=== PATIENT | female | born 1980 | race Asian ===

== ENCOUNTER 2017-11-29 12:20 | Outpatient (CLI) | payer OTHER, SELFPAY ==
--- NOTE | 2017-12-04 11:55 | PM.OBTRLD ---
[facility] Medical History Eczema (Chronic ~1989) History of frequent headaches (Resolved ~1979) Migraine (Resolved ~1979) Surgical History Status post appendectomy (Resolved 1982) Family History Father Age: 63 Prostate cancer Hypertension Sister Age: 34 Hypertension Evaluation Evaluation Baseline heart rate: 125 Variability: Moderate (11-25) monitor accelerations: Present monitor decelerations: Absent Uterine Contraction Intensity: Mild Category of Tracing: I
== END 2017-11-29 13:10 | disposition home or self-care (01) ==
LOC: LABOR 12:55 → OB 12-04 14:19
PROVIDERS: Family Provider Obstetrics & Gynecology; PCP Obstetrics & Gynecology; Visit Provider Obstetrics & Gynecology
DX: Z34.03 Encounter for supervision of normal first pregnancy, third trimester (principal); Z3A.33 33 weeks gestation of pregnancy
CPT/HCPCS: 59025; G0378; G0379

== ENCOUNTER → 2017-12-17 16:45 | Outpatient (CLI) | payer OTHER, SELFPAY ==
[2017-12-18 16:13] LABS: Strep Grp B PCR NEG for Grp B Strep
== END ==
PROVIDERS: Family Provider Obstetrics & Gynecology; PCP Obstetrics & Gynecology; Visit Provider Obstetrics & Gynecology
DX: Z36.9 Encounter for antenatal screening, unspecified (principal); Z3A.35 35 weeks gestation of pregnancy
CPT/HCPCS: 87653

== ENCOUNTER 2018-01-17 07:16 | Inpatient (IN) | payer OTHER, SELFPAY ==
[2018-01-17] MEDS: LACTATED RINGERS 1,000 ML 100 ML IV (07:30)
[2018-01-17 09:00] VITALS: BP 111/77
[2018-01-17 09:04] LABS: Add Manual Diff / Slide Review NO; Basophils Percent Auto 0.3 % (0-2); Eosinophils Percent Auto 0.2 % (2-4); Hemoglobin 12.7 g/dL (12.0-16.0); Lymphocytes Percent Auto 12.6 % (25-40); Mean Corpuscular HGB Conc 33.6 % (30-36); Mean Corpuscular Volume 92.4 fL (80-100); Monocytes Percent Auto 4.3 % (3-14); Neutrophils Absolute Auto 11600 /uL (3000-5900); Neutrophils Percent Auto 82.6 % (50-75); Platelet Count 255 X10^3/uL (150-400); Red Blood Cell Count 4.11 X10^6/uL (4.0-5.2); Red Cell Distribution Width 14.6 % (11.6-14.8)
--- NOTE | 2018-01-17 09:37 | PM.OBHP.1 ---
OB HPI Date/Time Date of admission: 01/17/18 Date Patient Seen: 01/17/18 Time Patient Seen: 09:38 History of Present Illness Chief complaint: OBSERVATION OF LABOR : 1 Para: 0 Estimated Date of Delivery: 01/09/18 Estimated Gestational Age (weeks): 41 1/7 Narrative: Pushpa Peters is a 37 year old female 1 para 0 at 41-,1/7 weeks gestation who presented in active labor She received an epidural for pain management. She has progressed to complete dilation. Ultrasound showed occiput posterior presentation. Indications Other reason(s) for admission: Active labor History of Present care: good care Dating criteria: LMP confirmed by 1st trimester US Ultrasounds: normal 1st trimester US and normal mid trimester US Obstetrical complications: none Medical complications: none Preadmission Labs Blood type: A (+) positive -: Antibody screen: negative, GBS status: negative, HBsAG: negative, HIV: negative, HSV 1: positive, HSV 2: negative and RPR/VDLR: negative -: Chlamydia screen: not detected and Gonorrhea screen: not detected -: Rubella: immune and Varicella: immune HCT: 32.9 HCAB: negative Cell-free DNA: Normal Urine: Negative 1 hr GTT: 116 Evaluation Evaluation Baseline heart rate: 130 Variability: Moderate (11-25) monitor accelerations: Present monitor decelerations: Absent Contraction Frequency (minutes): 3 Uterine Contraction Intensity: Strong/Firm Category of Tracing: I Cervical dilation (cm): 10 Cervical effacement (%): 100 station: -1 Laboratory results: Laboratory Tests 01/17/18 01/17/18 08:43 08:43 WBC 14.0 H RBC 4.11 Hgb 12.7 Hct 38.0 MCV 92.4 MCH 31.0 MCHC 33.6 RDW 14.6 Plt Count 255 Neut % (Auto) 82.6 H Lymph % (Auto) 12.6 L Haskell % (Auto) 4.3 Eos % (Auto) 0.2 L Baso % (Auto) 0.3 Neut # (Auto) 71573 H Blood Type A Positive Non-invasive Membranes Rupture Test: negative PFSH Medical History Eczema (Chronic ~1989) History of frequent headaches (Resolved ~1979) Migraine (Resolved ~1979) Surgical History Anesthesia (Resolved) Status post appendectomy (Resolved 1982) Family History Father Age: 63 Prostate cancer Hypertension Sister Age: 34 Hypertension Grandfather No problems noted. Mother No problems noted. Grandmother No problems noted. Grandfather No problems noted. Grandmother No problems noted. Social History Smoking Status: Never smoker Meds Home Medications Medication Instructions Recorded Confirmed Type nifedipine 10 mg capsule 10 mg PO Q8H #20 cap 12/03/17 Rx breast pump #1 each 12/17/17 12/17/17 Rx Exam Vital Signs (past 8 hours): - 01/17/18 09:00 Blood Pressure 111/77 Narrative Exam Narrative: Generally: A well-developed, well-nourished female, with good pain control with epidural Lungs: Clear to auscultation bilaterally Cardiovascular: Regular rate and rhythm Fundal height: 39 cm Estimated weight: 7 1/2 # Extremities: Negative Homans, no edema Vaginal exam: Complete, -1 station Ultrasound: Direct occiput posterior presentation Objective Labs Result Diagrams: 01/17/18 08:43 Labs: Laboratory Results - last 24 hr 01/17/18 01/17/18 08:43 08:43 WBC 14.0 H RBC 4.11 Hgb 12.7 Hct 38.0 MCV 92.4 MCH 31.0 MCHC 33.6 RDW 14.6 Plt Count 255 Neut % (Auto) 82.6 H Lymph % (Auto) 12.6 L Haskell % (Auto) 4.3 Eos % (Auto) 0.2 L Baso % (Auto) 0.3 Neut # (Auto) 46324 H Blood Type A Positive Assessment and Plan (1) 41 weeks gestation of : Current visit: Yes Status: Acute (2) Active labor at term: Current visit: Yes Status: Acute Assessment: 37-year-old 1 para 0 41-,1/7 weeks gestation in active labor entering 2nd stage Direct occiput posterior presentation Adequate pain management with epidural Plan: Position changes to try to change position of the head Expected management to spontaneous vaginal delivery
--- NOTE | 2018-01-17 13:06 | PM.OBPRVD ---
Delivery date: 01/17/18 Intrapartal events: None Induction method: none Delivery augmentation: rupture of membranes Delivery monitor: external FHT and external uterine Route of delivery: Episiotomy description: None Laceration description: Vaginal - 1st Degree Delivery repair: chromic Estimated blood loss (mL): 100 Complications: None Narrative: Patient complete and pushed for 2 1/2 hours. At 12:35 p.m. a live male infant delivered spontaneously over an intact perineum. No nuchal cord. The remainder of the body delivered without difficulty and was placed on mom's abdomen. The cord was double clamped and cut. There was a true knot in the cord. Cord bloods were obtained. The placenta delivered intact with a 3 vessel cord at 12:40 p.m.. Fundus massaged to firm. A first-degree laceration repaired with 2 0 chromic in the usual fashion. Hemostasis was achieved. The bladder was straight cathed after the delivery. Epidural analgesia. Apgars 9 at 1 min and 9 at 5 min. Estimated blood loss 100 cc. . Mom and stable to recovery. Plan for aftercare: To recovery at Center
[2018-01-17] MEDS: IBUPROFEN 600 MG TABLET PO (21:35)
[2018-01-18] MEDS: LANOLIN OINT 7 GM 1 APPLIC TOP (00:39)
[2018-01-18 05:06] LABS: Hematocrit 35.7 % (36-46); Hemoglobin 11.9 g/dL (12.0-16.0)
[2018-01-18] MEDS: IBUPROFEN 600 MG TABLET PO (08:47)
[2018-01-18] MEDS: PRENATAL VIT,CALC/IRON/FOLIC 1 TABLET 1 TAB PO (08:47)
[2018-01-18] MEDS: DOCUSATE 250 MG CAPSULE PO (08:47)
[2018-01-18 10:18] VITALS: BP 121/85; PULSE 80; RESP 16; TEMP 36.4
== END 2018-01-18 12:20 | disposition home or self-care (01) | DRG 775 ==
PROVIDERS: Admitting Provider Family Medicine; Family Provider Obstetrics & Gynecology; PCP Obstetrics & Gynecology; Visit Provider Family Medicine
DX: O64.0XX0 Obstructed labor due to incomplete rotation of fetal head, not applicable or unspecified (principal); Z3A.41 41 weeks gestation of pregnancy; Z37.0 Single live birth; O70.0 First degree perineal laceration during delivery; O69.2XX0 Labor and delivery complicated by other cord entanglement, with compression, not applicable or unspecified
CPT/HCPCS: 01967; 36415; 59050; 59400; 76815; 85014; 85018; 85025; 86850; 86900; 86901; G0379

== ENCOUNTER → 2020-11-30 10:10 | Outpatient (CLI) | payer OTHER, SELFPAY ==
[2020-11-30 11:21] LABS: Hematocrit 40.9 % (36-46); Hemoglobin 13.4 g/dL (12.0-16.0); Mean Corpuscular HGB Conc 32.7 % (30-36); Mean Corpuscular Hemoglobin 30.3 PG (26-34); Mean Corpuscular Volume 92.6 fL (80-100); Platelet Count 251 X10^3/uL (150-400); Red Blood Cell Count 4.42 X10^6/uL (4.0-5.2); Red Cell Distribution Width 13.2 % (11.6-14.8); White Blood Cell Count 4.4 X10^3/uL (4.5-11.0)
[2020-11-30 11:55] LABS: Alanine Aminotransferase 15 IU/L (<35); Albumin 4.4 g/dL (3.5-5.0); Albumin Globulin Ratio 1.5 (1.0-2.8); Alkaline Phosphatase 47 U/L (38-126); Aspartate Aminotransferase 25 IU/L (14-36); BUN Creatinine Ratio 23.5 (6-22); Bilirubin Total 0.5 mg/dL (0.2-1.3); Blood Urea Nitrogen 16 mg/dL (7-17); Calcium 9.3 mg/dL (8.4-10.2); Carbon Dioxide 27 mmol/L (22-32); Chloride 105 mmol/L (98-107); Cholesterol 155 mg/dL (140-199); Estimated Glomerular Filt Rate > 60.0 mL/min (>60); Globulin 2.9 g/dL (1.7-4.1); Glucose 100 mg/dL (70-100); HDL Cholesterol 58 mg/dL (40-60); HEMOLYSIS < 15 (0-50); LDL Cholesterol Calculated 90 mg/dL (<100); Potassium 4.3 mmol/L (3.4-5.1); Sodium 141 mmol/L (137-145); Total Protein 7.3 g/dL (6.3-8.2); Triglycerides 36 mg/dL (35-150)
== END ==
PROVIDERS: Family Provider Obstetrics & Gynecology; PCP Nurse Practitioner Family; Referring Provider Nurse Practitioner Family; Visit Provider Nurse Practitioner Family
DX: Z00.00 Encounter for general adult medical examination without abnormal findings (principal); Z13.6 Encounter for screening for cardiovascular disorders
CPT/HCPCS: 36415; 80053; 80061; 85027

== ENCOUNTER → 2021-05-17 11:00 | Outpatient (CLI) | payer OTHER, SELFPAY ==
--- NOTE | 2021-05-17 11:00 | DI.MG.S_ITS ---
BILATERAL DIGITAL SCREENING MAMMOGRAM 3D/2D WITH CAD: 05/17/2021 CLINICAL: Routine screening. Baseline exam. No prior exams were available for comparison. The tissue of both breasts is heterogeneously dense. This may lower the sensitivity of mammography. Current study was also evaluated with a Computer Aided Detection (CAD) system. No significant masses, calcifications, or other findings are seen in either breast. IMPRESSION: NEGATIVE There is no mammographic evidence of malignancy. A 1 year screening mammogram is recommended. This exam was interpreted at Station ID: [id number]. NOTE: For mammograms, a report in lay terms will be sent to the patient. Approximately 15% of breast malignancies will not be visualized mammographically. In the management of a palpable breast mass, a negative mammogram must not discourage biopsy of a clinically suspicious lesion. Electronically Signed By: Wander gibson/ramirez:05/17/2021 12:47:07 letter sent: Normal Exam ACR BI-RADS Category 1: Negative [id number]
== END ==
PROVIDERS: Family Provider Obstetrics & Gynecology; PCP Nurse Practitioner Family; Referring Provider Nurse Practitioner Family; Visit Provider Nurse Practitioner Family
DX: Z12.31 Encounter for screening mammogram for malignant neoplasm of breast (principal)
CPT/HCPCS: 77063; 77067

== ENCOUNTER → 2022-12-07 08:16 | Outpatient (CLI) | payer OTHER, SELFPAY ==
--- NOTE | 2022-12-07 | DI.MG.S_ITS ---
BILATERAL DIGITAL SCREENING MAMMOGRAM 3D/2D WITH CAD: 12/07/2022 CLINICAL: Routine screening. Comparison is made to exam dated: 05/17/2021 mammogram - [facility]. Both breasts are heterogeneously dense, which may obscure small masses (category c / 51-75% glandular tissue). Current study was also evaluated with a Computer Aided Detection (CAD) system. No significant masses, calcifications, or other findings are seen in either breast. There has been no significant interval change. IMPRESSION: NEGATIVE There is no mammographic evidence of malignancy. A 1 year screening mammogram is recommended. Based on the Tyrer Cuzick model (a risk assessment model) the patient's lifetime risk is 15.2% and her 10 year risk is 2.3%. According to the ACR, ACS, and NCCN guidelines, an annual breast MRI exam along with mammogram is recommended if the patient's lifetime risk is 20% or greater. This exam was interpreted at Station ID: [id number]. NOTE: For mammograms, a report in lay terms will be sent to the patient. Approximately 15% of breast malignancies will not be visualized mammographically. In the management of a palpable breast mass, a negative mammogram must not discourage biopsy of a clinically suspicious lesion. Electronically Signed By: Wander gibson/ramirez:12/07/2022 11:50:05 letter sent: Normal Exam ACR BI-RADS Category 1: Negative [id number]
== END ==
PROVIDERS: Family Provider Obstetrics & Gynecology; PCP Nurse Practitioner Family; Referring Provider Nurse Practitioner Family; Visit Provider Nurse Practitioner Family
DX: Z12.31 Encounter for screening mammogram for malignant neoplasm of breast (principal)
CPT/HCPCS: 77063; 77067